=== PATIENT | female | born 1975 ===

== ENCOUNTER 2017-09-13 10:15 | Outpatient (RCR) | payer BC ==
[~2017-09-13 10:15] MED LIST: ARMTHY90PT PO
[2017-09-13 10:23] VITALS: BP 99/68
--- NOTE | 2017-09-14 19:28 | ONCOLOGY FOLLOW UP NOTE ---
EVENT DATE: September 13, 2017 CHIEF COMPLAINT/REASON FOR VISIT Sara is a pleasant, 41-year-old female with a history of hairy cell leukemia, status post one cycle of cladribine in April 2013 who is here for followup. HISTORY OF PRESENT ILLNESS Sara returns. She is a patient of mine from [place] who prefers to be seen closer to home in [place]. Her bone marrow biopsy at diagnosis showed 70% to 80% hairy cell leukemia cells. This resolved with a six-month bone marrow biopsy. She required Neulasta support and had an allergic reaction to LEVAQUIN during her treatment. Overall, she feels extremely well. Her energy is good. She has a very active lifestyle and continues to struggle to lose weight. She is still premenopausal. She does take thyroid replacement for hypothyroidism due to partial resection as well as Sirisha thyroiditis. No concerning lumps or bumps. No splenomegaly. No GI issues. No fevers or chills. Her labs are excellent. She is under high stress with her 12-year-old son. PAST MEDICAL HISTORY (Please cut and paste from my note on August 23, 2016.) SOCIAL HISTORY (Please cut and paste from my note on August 23, 2016.) FAMILY HISTORY (Please cut and paste from my note on August 23, 2016.) MEDICATION LIST (Please cut and paste from my note on August 23, 2016.) REVIEW OF SYSTEMS (Please cut and paste from my note on August 23, 2016.) PHYSICAL EXAMINATION VITAL SIGNS: Blood pressure 99/68, pulse 67, respiratory rate 16, temperature 97 Fahrenheit, oxygen saturation 99% on room air. Weight 83.8 kg. PAIN: Zero/10 FATIGUE: Zero/10 GENERAL: Stable condition, resting comfortably in the chair. HEENT: Normocephalic, atraumatic. CARDIOVASCULAR: Regular rate and rhythm. LUNGS: Clear. ABDOMEN: Soft, nontender, nondistended. EXTREMITIES: No clubbing, cyanosis, or edema. Remainder of physical exam otherwise unremarkable. IMPRESSION (Import.) PLAN Mrs. Levy is a pleasant, 41-year-old female with hairy cell leukemia, currently in remission. I would like to see her every year with labs every six months. Advised her to contact us if she has any concerns. We spent a considerable amount of time discussing psychosocial issues related to her son currently. I advised it would be reasonable to consider hormone evaluation given his symptoms; however, I do suspect these may be psychosocial problems as well as he is having a difficult time with friends and with school currently. I answered all her questions today. Billing Return visit level 4. Total time 30 minutes, counseling time 20. MELODIED
== END 2017-09-29 13:45 | disposition home or self-care (01) ==
LOC: ONC 10:15
PROVIDERS: ATTEND Internal Medicine
DX: C91.41 Hairy cell leukemia, in remission (principal); E03.9 Hypothyroidism, unspecified; Z88.1 Allergy status to other antibiotic agents
CPT/HCPCS: 99212